=== PATIENT | female | born 1985 | race Two or more races ===

== ENCOUNTER 2017-06-29 15:30 | Inpatient (IN) | payer OTHER ==
[~2017-06-29] VITALS: Ht 162.6 cm; Wt 75.7 kg
== END 2017-08-03 12:13 | DRG 775 ==
LOC: OB/GYN 15:30 → ADM 15:30 → EDSTATUS 15:30 → EDBD 15:30 → LDR 08-01 05:43 → OB/GYN 08-01 15:28
PROC: 10E0XZZ Delivery of Products of Conception, External Approach (ICD-10-PCS; principal; 2017-08-01)
PROC: 0UQGXZZ Repair Vagina, External Approach (ICD-10-PCS; 2017-08-01)
PROC: 10907ZC Drainage of Amniotic Fluid, Therapeutic from Products of Conception, Via Natural or Artificial Opening (ICD-10-PCS; 2017-08-01)
PROC: 0W8NXZZ Division of Female Perineum, External Approach (ICD-10-PCS; 2017-08-01)
PROC: 4A1HXCZ Monitoring of Products of Conception, Cardiac Rate, External Approach (ICD-10-PCS; 2017-08-01)
DX: O71.4 Obstetric high vaginal laceration alone (principal); O76 Abnormality in fetal heart rate and rhythm complicating labor and delivery; Z3A.40 40 weeks gestation of pregnancy; Z37.0 Single live birth

== ENCOUNTER 2017-07-19 13:29 | Outpatient (CLI) | payer OTHER | END 2017-07-19 13:53 | disposition home or self-care (01) | LOC: NST 13:29 | DX: Z34.83 Encounter for supervision of other normal pregnancy, third trimester (principal) ==

== ENCOUNTER 2017-07-27 16:01 | Outpatient (CLI) | payer OTHER | END 2017-07-27 18:18 | disposition home or self-care (01) | LOC: NST 16:01 | DX: Z34.83 Encounter for supervision of other normal pregnancy, third trimester (principal) ==

== ENCOUNTER 2021-03-28 10:14 | Outpatient (CLI) | payer OTHER | END 2021-03-28 11:14 | disposition home or self-care (01) | LOC: NST 10:14 | PROVIDERS: ATTEND Obstetrics & Gynecology Maternal & Fetal Medicine | DX: Z34.83 Encounter for supervision of other normal pregnancy, third trimester (principal) ==

== ENCOUNTER 2021-03-29 15:00 | Inpatient (IN) | payer OTHER ==
[~2021-03-29] VITALS: Ht 162.6 cm; Wt 79.4 kg
[2021-04-02] MEDS ORDERED: PRENATAL TABLE1 EAC1 PO (22:39)
== END 2021-04-04 10:01 | disposition home or self-care (01) | DRG 807 ==
LOC: LDR 04-02 21:23 → OB/GYN 04-02 23:45 → SURH 04-04 15:00
PROVIDERS: ADMIT Obstetrics & Gynecology; ATTEND Obstetrics & Gynecology
PROC: 10E0XZZ Delivery of Products of Conception, External Approach (ICD-10-PCS; principal; 2021-04-02)
PROC: 0KQM0ZZ Repair Perineum Muscle, Open Approach (ICD-10-PCS; 2021-04-02)
PROC: 4A1HXFZ Monitoring of Products of Conception, Cardiac Rhythm, External Approach (ICD-10-PCS; 2021-04-02)
DX: O70.1 Second degree perineal laceration during delivery (principal); Z37.0 Single live birth; Z3A.39 39 weeks gestation of pregnancy

== ENCOUNTER 2023-08-29 10:38 | Emergency (ER) | payer OTHER ==
[~2023-08-29] VITALS: Ht 162.6 cm; Wt 63.5 kg
[~2023-08-29 10:38] MED LIST: PRENATAL TABLE1 EAC1 PO
[2023-08-29] MEDS ORDERED: KETOROLAC TROMETHAMINE 60 MG VIAL IM STA (12:35)
[2023-08-29] MEDS ORDERED: KETOROLAC TROMETHAMINE 60 MG VIAL IM ONE (12:41)
== END 2023-08-29 14:04 | disposition home or self-care (01) ==
LOC: ER 10:39
DX: M54.9 Dorsalgia, unspecified (principal)